=== PATIENT | female | born 1980 | race Caucasian/White ===

== ENCOUNTER 2017-12-08 13:54 | Emergency (ER) | payer OTHER ==
[~2017-12-08] VITALS: Ht 167.6 cm; Wt 58.5 kg
[2017-12-08] MEDS ORDERED: PROMETHAZINE W118 ML PO (19:01)
== END 2017-12-08 20:26 | disposition home or self-care (01) ==
LOC: ER 13:54
DX: J40 Bronchitis, not specified as acute or chronic (principal)